=== PATIENT | female | born 1985 | race Asian ===

== ENCOUNTER 2019-01-19 19:42 | Emergency (ER) | payer SELFPAY ==
[~2019-01-19] VITALS: Ht 165.1 cm; Wt 99.8 kg
[~2019-01-19 19:42] MED LIST: SULF1TAB24 PO
[2019-01-19 19:47] VITALS: BP 158/93
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
[2019-01-19] MEDS ORDERED: CYCL10TA2 PO (20:57)
--- NOTE | 2019-01-20 00:01 | RAD ---
2 views right clavicle HISTORY: Pain AP views of the right clavicle. The visualized osseous structures appear normal. IMPRESSION: No acute findings. Electronically signed by: Hu Veronica III, MD (01/19/2019 11:58 PM) [facility]
== END 2019-01-19 21:34 | disposition home or self-care (01) ==
LOC: ER 19:42
DX: M25.511 Pain in right shoulder (principal); G89.29 Other chronic pain; M25.572 Pain in left ankle and joints of left foot; Z88.8 Allergy status to other drugs, medicaments and biological substances
CPT/HCPCS: 73000; 99284